=== PATIENT | female | born 1955 | race Caucasian/White ===

== ENCOUNTER → 2016-11-16 | Outpatient (CLI) | payer BC ==
[2016-11-16 11:17] LABS: ABSOLUTE EOSINOPHILS # (AUTO) 0.1 10^3/uL (0.0-0.6); ABSOLUTE LYMPHOCYTES (AUTO) 1.7 10^3/uL (0.5-4.7); ABSOLUTE MONOCYTES (AUTO) 0.4 10^3/uL (0.1-1.4); ABSOLUTE NEUT (AUTO) 4.8 10^3/uL (1.7-8.2); BASOPHILS % (AUTO) 0.5 % (0-2); EOSINOPHILS % (AUTO) 0.9 % (0-6); HEMATOCRIT 39.2 % (36.0-47.0); HEMOGLOBIN 12.7 g/dL (12.0-15.5); HGB HCT DIFFERENCE -1.1; LYMPHOCYTES % (AUTO) 24.1 % (13-45); MEAN CORPUSCULAR HGB CONC 32.3 g/dL (32.0-36.0); MEAN CORPUSCULAR VOLUME 84 fl (80-97); MONOCYTES % (AUTO) 6.1 % (3-13); RED CELL DISTRIBUTION WIDTH 15.3 % (11.5-14.0); SEGMENTED NEUTROPHILS % (AUTO) 68.4 % (42-78)
[2016-11-16 11:42] LABS: ALANINE AMINOTRANSFERASE 38 U/L (9-52); ALBUMIN 4.2 g/dL (3.5-5.0); ALKALINE PHOSPHATASE 85 U/L (38-126); ANION GAP 12 (5-19); ASPARTATE AMINO TRANSFERASE 22 U/L (14-36); BILIRUBIN,DIRECT 0.3 mg/dL (0.0-0.4); BILIRUBIN,TOTAL 0.7 mg/dL (0.2-1.3); BLOOD UREA NITROGEN 13 mg/dL (7-20); CALCIUM 9.3 mg/dL (8.4-10.2); CARBON DIOXIDE 31 mmol/L (22-30); CHLORIDE 99 mmol/L (98-107); CHOLESTEROL 195.01 mg/dL (0-200); CREATININE RESULT 0.68 mg/dL (0.52-1.25); Direct HDL 47 mg/dL (>40); GLUCOSE 97 mg/dL (75-110); POTASSIUM 4.3 mmol/L (3.6-5.0); SODIUM 141.8 mmol/L (137-145); TOTAL PROTEIN 7.8 g/dL (6.3-8.2); TRIGLYCERIDES 221 mg/dL (<150)
[2016-11-16 11:54] LABS: DIRECT LDL 125 mg/dL (<100)
[2016-11-16 11:57] LABS: VLDL CHOLESTEROL 44.2 mg/dL (10-31)
== END ==
LOC: OD 10:30
PROVIDERS: ATTEND Internal Medicine
DX: I10 Essential (primary) hypertension (principal); E78.5 Hyperlipidemia, unspecified; E88.81 Metabolic syndrome and other insulin resistance; R53.83 Other fatigue
CPT/HCPCS: 36415; 80053; 80061; 83036; 83525; 84443; 85025

== ENCOUNTER → 2017-10-25 | Outpatient (CLI) | payer BC, OTHER ==
[2017-10-25 16:55] LABS: ABSOLUTE EOSINOPHILS # (AUTO) 0.1 10^3/uL (0.0-0.6); ABSOLUTE LYMPHOCYTES (AUTO) 2.1 10^3/uL (0.5-4.7); ABSOLUTE MONOCYTES (AUTO) 0.7 10^3/uL (0.1-1.4); ABSOLUTE NEUT (AUTO) 6.2 10^3/uL (1.7-8.2); BASOPHILS % (AUTO) 0.4 % (0-2); EOSINOPHILS % (AUTO) 1.2 % (0-6); HEMOGLOBIN 12.4 g/dL (12.0-15.5); LYMPHOCYTES % (AUTO) 22.6 % (13-45); MEAN CORPUSCULAR HEMOGLOBIN 26.8 pg (27.0-33.4); MEAN CORPUSCULAR HGB CONC 32.7 g/dL (32.0-36.0); MEAN CORPUSCULAR VOLUME 82 fl (80-97); MONOCYTES % (AUTO) 7.9 % (3-13); PLATELET COUNT 236 10^3/uL (150-450); RED BLOOD COUNT 4.64 10^6/uL (3.72-5.28); RED CELL DISTRIBUTION WIDTH 15.4 % (11.5-14.0); SEGMENTED NEUTROPHILS % (AUTO) 67.9 % (42-78); TOTAL CELLS COUNTED % (AUTO) 100 %; WHITE BLOOD COUNT 9.1 10^3/uL (4.0-10.5)
[2017-10-25 17:10] LABS: ALANINE AMINOTRANSFERASE 52 U/L (9-52); ALBUMIN 4.5 g/dL (3.5-5.0); ALKALINE PHOSPHATASE 91 U/L (38-126); ANION GAP 10 (5-19); ASPARTATE AMINO TRANSFERASE 24 U/L (14-36); BILIRUBIN,DIRECT 0.3 mg/dL (0.0-0.4); BILIRUBIN,TOTAL 0.3 mg/dL (0.2-1.3); BLOOD UREA NITROGEN 16 mg/dL (7-20); CALCIUM 10.7 mg/dL (8.4-10.2); CARBON DIOXIDE 31 mmol/L (22-30); CHLORIDE 104 mmol/L (98-107); GLUCOSE 102 mg/dL (75-110); POTASSIUM 4.3 mmol/L (3.6-5.0)
== END ==
LOC: LAB 16:33
PROVIDERS: ATTEND Internal Medicine
DX: K57.92 Diverticulitis of intestine, part unspecified, without perforation or abscess without bleeding (principal)
CPT/HCPCS: 36415; 80053; 85025

== ENCOUNTER → 2017-10-28 | Outpatient (CLI) | payer BC, OTHER ==
--- NOTE | 2017-10-28 08:44 | RADIOLOGY REPORT (SQ) ---
EXAM DESCRIPTION: CT ABD/PELVIS WITH IV ORAL COMPLETED DATE/TIME: 10/28/2017 7:57 am REASON FOR STUDY: DIVERTICULITIS (K57.92) K57.92 DVTRCLI OF INTEST, PART UNSP, W/O PERF OR ABSCESS W/O bilateral lower quadrant pain. COMPARISON: None. TECHNIQUE: CT scan of the abdomen and pelvis performed using helical scanning technique with dynamic intravenous contrast injection. No oral contrast. Images reviewed with lung, soft tissue, and bone windows. Reconstructed coronal and sagittal MPR images reviewed. Delayed images for evaluation of the urinary system also acquired. All images stored on PACS. All CT scanners at this facility use dose modulation, iterative reconstruction, and/or weight based d osing when appropriate to reduce radiation dose to as low as reasonably achievable (ALARA). [facility]: Dose Right [facility]: CareDose [facility]: Dose Right [facility]: Teradose 4D [facility]: [employer] CONTRAST TYPE AND DOSE: contrast/concentration: Isovue 370.00 mg/ml; Total Contrast Delivered: 100.0 ml; Total Saline Delivered: 72.0 ml RENAL FUNCTION: Creatinine: 0.73. RADIATION DOSE: CT Rad equipment meets quality standard of care and radiation dose reduction techniq ues were employed. CTDIvol: 16.7 - 19.1 mGy. DLP: 1842 mGy-cm.. LIMITATIONS: None. FINDINGS: LOWER CHEST: No abnormality seen. LIVER: Fatty infiltration of the liver. SPLEEN: Accessory splenic tissue. PANCREAS: No abnormality. GALLBLADDER: No abnormality . ADRENAL GLANDS: No abnormality. RIGHT KIDNEY AND URETER: No abnormality. LEFT KIDNEY AND URETER: No abnormality. AORTA AND VESSELS: Atherosclerotic change of the abdominal aorta and iliac vessels. Patency celiac, superior mesenteric, renal, and inferior mesenteric arteries. RETROPERITONEUM: No retroperitoneal adenopathy, hemorrhage or masses. BOWEL AND PERITONEAL CAVITY: Umbilical hernia containing fat. Colonic diverticulosis without evidenc e of diverticulitis. Hiatal hernia. APPENDIX: Normal. PELVIS: No mass. No free fluid. Normal bladder. Status post hysterectomy. ABDOMINAL WALL: No masses. No hernias. BONES: No significant or acute findings. OTHER: No other significant finding. IMPRESSION: Fatty infiltration of the liver. Colonic diverticulosis. Specifically, no changes to s uggest diverticulitis. TECHNICAL DOCUMENTATION: JOB ID: [id number] [id number] Quality ID # [id number]: Final reports with documentation of one or more dose reduction techniques (e.g., Au tomated exposure control, adjustment of the mA and/or kV according to patient size, use of iterative reconstruction technique) 2010 [employer] All Rights Reserved Reading location - IP/workstation name: [email or web address]
== END ==
LOC: RAD 07:15
PROVIDERS: ATTEND Internal Medicine
DX: K57.92 Diverticulitis of intestine, part unspecified, without perforation or abscess without bleeding (principal)
CPT/HCPCS: 74177